=== PATIENT | female | born 1975 | race Caucasian/White ===

== ENCOUNTER 2017-12-21 21:11 | Emergency (ER) | payer OTHER ==
[~2017-12-21] VITALS: Ht 167.6 cm; Wt 93.7 kg
[2017-12-21 21:18] VITALS: TEMP 36.7; Ht 167.6 cm; Wt 93.7 kg
[2017-12-21] MEDS ORDERED: IBUPROFEN 800 MG TAB PO STA (21:47)
--- NOTE | 2017-12-21 22:11 | DIAGNOSTIC IMAGING REPORT ---
LEFT HAND 3 VIEWS HISTORY: left hand pain, crush injury COMPARISON: None. FINDINGS: Soft tissue swelling at the dorsum of the MCP joints. There appears to be a nondisplaced fracture of the distal tuft of the left fourth finger. No radiopaque foreign bodies. IMPRESSION: Nondisplaced fracture at the distal tuft of the left fourth finger. Electronically signed by: Pranav Michael M.D. 12/21/2017 10:09 PM Dictated Date/Time: 12/21/2017 10:07 PM
[2017-12-21] MEDS ORDERED: MULT-513 PO (22:26)
[2017-12-21] MEDS ORDERED: LEVOXYL PO (22:26)
--- NOTE | 2017-12-21 22:52 | EMERGENCY ROOM VISIT NOTE ---
ED Visit Note First contact with patient: 21:40 CHIEF COMPLAINT: Left hand injury HISTORY OF PRESENT ILLNESS: This 42-year-old female patient presented to the emergency department, ambulatory, approximately 1 hour after they injured the left hand when it got crushed between a metal transporter and a wall. She describes the transporter as a large rack used to hold baked goods. She states she lost control and it crushed her hand into the wall. The patient reports significant pain in the fourth digit and hands, overlying the fourth metacarpal. She states the third through fifth digits and metacarpals in the hands were slammed by the object. She does report a crush injury to the fourth distal finger a few days ago. The patient is right-handed.. The patient rates the pain as throbbing and 5/10. The patient denies any numbness or tingling. The patient does not have injuries to the wrist. The patient has not had a previous fracture to this hand. REVIEW OF SYSTEMS: A 6 system review of systems was completed with positives and pertinent negatives in the HPI. ALLERGIES: None MEDICATIONS: Levoxyl PMH: Generic levothyroxine SOCIAL HISTORY: The patient lives locally with family. She is employed at [employer], where the incident occurred. The patient denies drug, alcohol, tobacco use. PHYSICAL EXAM: Vital Signs: Reviewed Nurse's notes, vital signs stable. GENERAL : This is a 42-year-old white female, in no acute distress, but appears to be in pain, well-developed, well-nourished. MUSCULOSKELETAL: There is moderate swelling overlying the MCP joint and extending into the fourth phalange and overlying the fourth metacarpal of the left hand. No obvious deformity of the left hand except for swelling. There is tenderness over the fourth metacarpal and phalange. There is mild tenderness over the third and fifth metacarpals and phalanges. There is no thenar or hypothenar eminence atrophy. Normal thumb opposition to all fingers. [employer]ist strength 5/5. There is no laceration. Capillary refill less than 2 seconds. No tenderness of the fingers or wrist. Full range of motion of the wrist. No snuff box tenderness. Radial pulse 2+. NEURO: Alert and oriented to person, place, and time. Normal sensation to light and sharp touch. RADIOLOGY: LEFT HAND 3 VIEWS HISTORY: left hand pain, crush injury COMPARISON: None. FINDINGS: Soft tissue swelling at the dorsum of the MCP joints. There appears to be a nondisplaced fracture of the distal tuft of the left fourth finger. No radiopaque foreign bodies. IMPRESSION: Nondisplaced fracture at the distal tuft of the left fourth finger. Electronically signed by: Pranav Michael M.D. 12/21/2017 10:09 PM Dictated Date/Time: 12/21/2017 10:07 PM EMERGENCY DEPARTMENT COURSE: I examined the patient. She was given 800 mg ibuprofen. An x-ray of the left hand was reviewed by myself and radiologist and shows nondisplaced distal tuft fracture of the fourth finger. I discussed the findings with the patient at bedside. I recommended a metal splint for the finger and an Lalito wrap to help with swelling and pain in the hands. I did provide the patient with orthopedics contact information in case of worsening or not improving symptoms. All questions were answered to the patient's satisfaction. Discharge instructions reviewed. The patient was discharged home in good condition. I attest that I have personally reviewed the patient's current medication list. Patient was found to have normal blood pressure on screening and does not require follow-up. Etiologies such as soft tissue injury, fracture, dislocation, neurovascular compromise, compartment syndrome, as well as others were entertained. DIAGNOSIS: Left hand contusion, fracture of the distal tuft of the left fourth finger The chart was completed utilizing [employer] Speech voice recognition software. Grammatical errors, random word insertions, pronoun errors, and incomplete sentences are an occasional consequence of this system due to software limitations, ambient noise, and hardware issues. Any formal questions or concerns about the content, text, or information contained within the body of this dictation should be directly addressed to the provider for clarification. Current/Historical Medications Scheduled Multivitamins/Minerals (Mvi With Minerals), 1 TAB PO DAILY [Levoxyl], 62.5 MCG PO DAILY Allergies Coded Allergies: Levothyroxine (Verified Adverse Reaction, Severe, PALPATATIONS, HANDS SWEAT, FEELS FAINT, 12/21/17) Vital Signs Date Time Temp Pulse Resp B/P (MAP) Pulse Ox O2 Delivery O2 Flow Rate FiO2 12/21/17 23:04 98 18 150/78 95 12/21/17 21:18 36.7 111 18 165/84 95 Room Air Medications Administered Medications (Trade) Dose Ordered Sig/Jose A Route Start Time Stop Time Status Last Admin Dose Admin Ibuprofen (Motrin Tab) 800 mg NOW STAT PO 12/21/17 21:47 12/21/17 21:48 DC 12/21/17 22:07 800 MG Departure Information Impression Primary Impression: Closed fracture of tuft of distal phalanx of finger Additional Impression: Contusion of left hand Dispostion Home / Self-Care Condition GOOD Referrals Paola Williamson PA-C (PCP) Patient Instructions ED Contusion Hand, ED Fx Finger Closed, My [facility] Additional Instructions You were seen in the emergency department today for a left hand crush injury. As discussed, there is no obvious fracture of the hand, there was a fracture of the distal tuft of the left fourth digit. Ibuprofen(Motrin, Advil) may be used for fever or pain. Use 600mg every six hours as needed. Take with food. Avoid using more than 2400mg in a 24 hour period. Do not use 2400mg per day for more than three consecutive days without physician direction. Prolonged inappropriate use can lead to stomach upset or ulcers. (AND/OR) Acetaminophen(Tylenol) may be used for fever or pain. Use 1000mg every six hours as needed. Avoid using more than 3000mg in a 24 hour period. Ice compresses for 20 minutes at a time four times daily for 2-3 days. Rest and elevate your injury. Use the metal splint to protect the finger. Wear the Lalito wrap to provide compression and support of the contusion due to the swelling. Return to the ER immediately for any numbness, tingling, severe pain, extreme swelling in the extremity or as needed. Call [facility], [phone], if no improvement in 1 week to arrange follow up for your injury. Follow-up with your primary care physician in 2 to 3 days for a recheck of your current condition. Problem Qualifiers Additional Impression: Contusion of left hand Encounter type: initial encounter Qualified Codes: S60.222A - Contusion of left hand, initial encounter
[2017-12-21 23:04] VITALS: BP 150/78; PULSE 98; O2SAT 95
== END 2017-12-21 23:05 | disposition home or self-care (01) ==
LOC: C.EDB 21:13 → C.EDD 23:05
DX: S62.635A Displaced fracture of distal phalanx of left ring finger, initial encounter for closed fracture (principal); S60.222A Contusion of left hand, initial encounter; W23.1XXA Caught, crushed, jammed, or pinched between stationary objects, initial encounter

== ENCOUNTER 2019-03-25 07:53 | Inpatient (IN) ==
[2019-03-25] MEDS ORDERED: miSOPROStol 50 MCG TAB PO ONE (08:30)
[2019-03-25] MEDS ORDERED: LACTATED RINGER'S 1,000 ML IV PRN (08:30)
[2019-03-25 08:56] LABS: Hematocrit (blood only) 33.6 % (37-47); Mean Corpuscular Volume 84.4 fL (80-100); Mean Platelet Volume 9.4 fL (7.4-10.4); Platelet Count 236 K/uL (130-400); RDW Coefficient of Variation 13.8 % (11.5-14.5); RDW Standard Deviation 42.4 fL (36.4-46.3); Red Blood Count 3.98 M/uL (4.2-5.4); White Blood Count 10.51 K/uL (4.8-10.8)
[2019-03-25 09:00] LABS: Mean Corpuscular Hgb Conc 35.7 g/dL (32-36)
[2019-03-25 09:02] LABS: Appearance Urine Clear (Clear); Bilirubin Urine Negative (Negative); Blood Urine Negative (Negative); Color Urine Yellow; Glucose Urine UA Negative (Negative); Ketones Urine Negative (Negative); Leukocyte Esterase Urine Negative (Negative); Nitrite Urine Negative (Negative); Protein Urine Negative (Negative); Urobilinogen Urine Negative (Negative)
[2019-03-25] MEDS ORDERED: miSOPROStol 50 MCG TAB PO STA (14:24)
--- NOTE | 2019-03-25 14:24 | Labor Progress Brief Note ---
Date of Service March 25, 2019 induction for prolonged gestation Received Cytotec#1 Pt doing well FHR; CAT1 Ctx. 4-5 mins .mild VE; //-2 Plan. continue with induction Cytotec #2 ordered Pt agrees to plan Results & Data Vital Signs (Past 12 Hours) Vital Signs Temp Pulse Resp BP 03/25/19 13:06 36.7 C 85 20 132/65 03/25/19 11:21 36.9 C 86 16 126/72 03/25/19 08:06 36.8 C 18 03/25/19 08:04 114 H 136/90
[2019-03-25] MEDS ORDERED: OXYTOCIN 30 UNITS/500 ML BAG IV PRN (21:26)
--- NOTE | 2019-03-25 21:26 | Labor Progress Brief Note ---
Date of Service March 25, 2019 Pt doing well Induction for prolonged gestation Received 2 doses of Cytotec FHR; CAT1 Ctx 2-5mins VE; 3/50/-2- Unchanged Plan Start Pitocin augmentation Pt agrees to plan Results & Data Vital Signs (Past 12 Hours) Vital Signs Temp Pulse Resp BP 03/25/19 19:07 36.6 C 18 03/25/19 19:06 86 140/88 03/25/19 14:57 36.7 C 16 03/25/19 14:42 85 134/82 03/25/19 13:06 36.7 C 85 20 132/65 03/25/19 11:21 36.9 C 86 16 126/72
[2019-03-25] MEDS ORDERED: BUTORPHANOL TARTRATE 2 MG/ML VIAL IV PRN (23:27)
--- NOTE | 2019-03-25 23:30 | Labor Progress Brief Note ---
Date of Service March 25, 2019 Pt doing well FHR- Poor tracing quality scalp placed VE; 4/90/-2; clear fluid Ctx 2-3mins Pit ; 2Mu Results & Data Vital Signs (Past 12 Hours) Vital Signs Temp Pulse Resp BP 03/25/19 22:14 36.8 C 03/25/19 22:13 93 H 146/76 H 03/25/19 19:07 36.6 C 03/25/19 19:06 86 140/88 03/25/19 14:57 36.7 C 16 03/25/19 14:42 85 134/82 03/25/19 13:06 36.7 C 85 20 132/65
[2019-03-25] MEDS ORDERED: BUTORPHANOL TARTRATE 2 MG/ML VIAL ONE (23:32)
[2019-03-26] MEDS ORDERED: ePHEDrine sulfate 50 MG/ML AMP ONE (00:47)
[2019-03-26] MEDS ORDERED: BUPIVACAINE 0.25% 30 ML VIAL ONE (00:47)
[2019-03-26] MEDS ORDERED: fentaNYL 2MCG/ML ROPIV 1.25MG/ML 100 ML BAG EPI ONE (00:48)
[2019-03-26] MEDS ORDERED: fentaNYL citrate 100 MCG/2 ML VIAL ONE (00:48)
[2019-03-26] MEDS ORDERED: NALBUPHINE HCL INJ 10 MG/ML AMP IV PRN (00:55)
[2019-03-26] MEDS ORDERED: ONDANSETRON INJ 2 MG/ML 2 ML VIAL IV PRN (00:55)
[2019-03-26] MEDS ORDERED: ePHEDrine sulfate 50 MG/ML AMP IV PRN (00:55)
[2019-03-26] MEDS ORDERED: DiphenhydrAMINE HCL 50 MG/ML VIAL IV PRN (00:55)
[2019-03-26] MEDS ORDERED: fentaNYL 2MCG/ML ROPIV 1.25MG/ML 100 ML BAG EPI PRN (00:55)
[2019-03-26] MEDS ORDERED: NALOXONE HCL 0.4 MG/1 ML VIAL/CARP IV PRN (00:55)
[2019-03-26] MEDS ORDERED: NALOXONE HCL 1 MG in SODIUM CHLORIDE 0.9% 1000ML 1,000 ML IV PRN (00:55)
--- NOTE | 2019-03-26 00:55 | Anesthesiology Consultation ---
Date of Service March 26, 2019 Assessment & Plan (1) Encounter for pre-operative examination: Chart Review Chart Review: Acceptable Risk for Labor Epidural Consults Requested none ASA ASA2 Proposed Anesthesia Anesthesia Type: Labor Epidural Risk / Benefits Reviewed With: PT / POA / Parent / Guardian, Accepts Plan and Informed Consent Obtained History Height/Weight Height: 5 ft 6 in Weight: 101.605 kg Allergies Allergy/AdvReac Type Severity Reaction Status Date / Time levothyroxine AdvReac Severe PALPATATIONS, Verified 03/25/19 08:29 HANDS SWEAT, FEELS FAINT Medications Home Medications Medication Instructions Recorded Confirmed Last Taken Levoxyl 88 mcg PO DAILY 03/25/19 03/25/19 03/25/19 06:00 PNV cmb#95-ferrous fumarate-FA 1 tab PO DAILY 03/25/19 03/25/19 03/25/19 06:00 [] Active Medications Generic Name Dose Route Start Last Admin Trade Name Freq PRN Reason Stop Dose Admin Lactated Ringer's 1,000 mls @ 125 mls/hr 03/25/19 08:30 03/25/19 22:00 Lr IV 03/27/19 08:29 125 mls/hr .Q8H PRN Administration L&D Protocol Protocol Oxytocin 30 units in 500 mls @ 2 mls/hr 03/25/19 21:26 03/26/19 00:28 Pitocin IV 03/27/19 21:25 0.36 units/hr .Q24H PRN 6 mls/hr Labor Induction/Augmentation Titration Protocol 0.12 UNITS/HR Past Medical History Medical History Asthma childhood Breast lesion bx wnl Depression as a teenager; no meds current Hypothyroidism only able to take Levoxyl only Mitral valve prolapse takes no meds hemorrhage with first delivery Exercise / Class Metabolic Activity II 4-5 Yardwork/Stairs/Walk up hill Past Surgical History Surgical History H/O dilation of urethra at age 13 Past Anesthesia History No Hx of Anesthesia Complications and No Family Hx of Anesthesia Complications History of PONV No Hx of PONV and No Hx of Motion Sickness Social History Smoking Status: Never smoker Hx Alcohol Use: No Hx Substance Use: No substance use type: does not use Physical Exam Vital Signs Last Vital Signs Temp 98.2 F 03/25/19 23:24 Pulse 89 03/26/19 00:49 Resp 18 03/25/19 23:24 BP 122/58 L 03/26/19 00:03 Pulse Ox 99 03/26/19 00:49 ENMT Mouth: no dentition abnormality Thyromental Distance: > or= 3.5 Finger Breadths Mallampati Class: II Neck normal visual inspection Respiratory normal respiratory effort Auscultation: lungs clear to auscultation bilaterally Cardiovascular Rate/Rhythm: regular rate and regular rhythm Testing Laboratory Results 03/25/19 08:44 Urine Color Yellow 03/25/19 08:19 Urine Appearance Clear (Clear) 03/25/19 08:19 Urine pH 7.0 (4.5-7.5) 03/25/19 08:19 Ur Specific [place] 1.010 (1.000-1.030) 03/25/19 08:19 Urine Protein Negative (Negative) 03/25/19 08:19 Urine Glucose (UA) Negative (Negative) 03/25/19 08:19 Urine Ketones Negative (Negative) 03/25/19 08:19 Urine Nitrite Negative (Negative) 03/25/19 08:19 Ur Leukocyte Esterase Negative (Negative) 03/25/19 08:19
[2019-03-26] MEDS: OXYTOCIN 30 UNITS/500 ML BAG IV PRN ×2 (02:51→03:27)
[2019-03-26] MEDS ORDERED: HYDROCORTISONE ACETATE 25 MG SUPP PR PRN (03:18)
[2019-03-26] MEDS ORDERED: miSOPROStol 200 MCG TAB PR ONE (03:18)
[2019-03-26] MEDS ORDERED: ACETAMINOPHEN 325 MG TAB PO PRN (03:18)
[2019-03-26] MEDS ORDERED: SUPERCREAM 0.870% 15 GM JAR EXT PRN (03:18)
[2019-03-26] MEDS ORDERED: OXYTOCIN 30 UNITS/500 ML BAG IV PRN (03:18)
[2019-03-26] MEDS ORDERED: DIPHTHERIA/TETANUS/PERTUSSIS 0.5 ML SYR/VIAL IM ONE (03:18)
[2019-03-26] MEDS ORDERED: BISACODYL 10 MG SUPP PR PRN (03:18)
[2019-03-26] MEDS ORDERED: BENZOCAINE 20% AER SPR 82.5 GM CAN EXT PRN (03:18)
--- NOTE | 2019-03-26 03:43 | History and Physical Report ---
DATE OF ADMISSION: 03/25/2019 HISTORY OF PRESENT ILLNESS: The patient is a 44-year-old G4, P2, due date 03/24/2019 making her 40 weeks and 1 day, who presented to labor and delivery for labor induction for prolonged gestation. On arrival, the patient had no shortness of breath, no chills, no fever. heart rate was category 1. COURSE: Has been unremarkable except for advanced maternal age. The patient had and testing including NIPT which showed low risk. PAST MEDICAL HISTORY: 1. History of hypothyroidism. 2. Obesity. PAST SURGICAL HISTORY: The patient has had urethral dilation, dental surgeries and breast biopsies. FAMILY HISTORY: Noncontributory. SOCIAL HISTORY: The patient denies tobacco, drug or alcohol use. OB AND PIEROGI MAKER HISTORY: The patient has had 2 spontaneous vaginal deliveries, one in 2003 when she delivered an 8 pound 9 ounce baby, the second one in 2010 when she delivered an 8 pound 6 ounce baby as well. PHYSICAL EXAMINATION: GENERAL: Well-developed, well-nourished white female in no acute distress. HEART: S1, S2, regular rhythm and rate. LUNGS: Clear to auscultation bilaterally. ABDOMEN: Gravid. Bedside ultrasound shows cephalic presentation. PELVIC: On admission is 2 cm, 50% effaced, and -2. EXTREMITIES: No cyanosis, clubbing or edema. ASSESSMENT AND PLAN: A 44-year-old G4, P2 at 40 weeks and 1 day, induction for prolonged gestation. Plan is to admit the patient and anticipate vaginal delivery.
--- NOTE | 2019-03-26 03:48 | Delivery Summary ---
DATE OF OPERATION: 03/25/2019 DELIVERY SUMMARY: The patient delivered a live infant male in left occiput anterior presentation. There was no nuchal cord. Vacuum was used x2 for delivery because of maternal exhaustion and heart rate which was in the 70-80s. Cord was clamped and cut. Cord blood was obtained. Cord gas was obtained as well. Placenta was spontaneously delivered. Placenta is sent to pathology for pathological analysis. Inspection of the perineum showed a second-degree midline episiotomy, which was performed prior to vacuum placement. The rest of the perineum was unremarkable. The weight is pending. Apgars 8 and 9. Rectal exam post repair showed good sphincter tone. There are no sutures palpated in the rectum. ESTIMATED BLOOD LOSS: 600 mL. and mother are doing well in recovery. I attest to the content of the Intraoperative Record and any orders documented therein. Any exceptions are noted below. MTDD
[2019-03-26 04:06] LABS: Base Excess Cord Arterial Bld -7.4 mEq/L (-9-1.8); Base Excess Cord Venous Blood -7.2 mEq/L (-7.7-1.9); CO2 Cord Arterial Blood 54 mmHg (39.1-73.5); Cord Venous Blood HCO3 20 mmol/L (18.4-26.8); Cord Venous Blood PCO2 44 mmHg (30.4-57.2); Cord Venous Blood PO2 35 mmHg (14.1-43.3); Cord Venous Blood pH 7.27 (7.20-7.44); HCO3 Cord Arterial Blood 21 mmol/L (19.7-28.5); Oxygen Sat Cord Arterial Blood < 60.0 % (<60); PO2 Cord Arterial Blood 25.1 % (4.1-31.7); pH Cord Arterial Blood 7.21 (7.1-7.38)
[2019-03-26] MEDS: IBUPROFEN 600 MG TAB PO PRN ×2 (05:16→12:45)
--- NOTE | 2019-03-26 09:31 | Anesthesia Procedure Note ---
Date of Service March 26, 2019 Anesthesia Post Epidural Note Vital Signs Vital Signs: Temp Pulse Resp BP Pulse Ox 36.6 C 83 18 124/64 100 03/26/19 08:20 03/26/19 08:20 03/26/19 08:20 03/26/19 08:20 03/26/19 02:49 Pain Intensity Abdomen: Pain Intensity: 2 Notes Mental Status: alert / awake / arousable Nausea / Vomiting: adequately controlled Pain: adequately controlled Airway Patency, RR, SpO2: stable & adequate BP & HR: stable & adequate Hydration State: stable & adequate Neuraxial Anesthesia: was administered and sensory block is resolving Anesthetic Complications: no major complications apparent and Pt Satisfied with anesthetic care Epidural: Removed without complications and With tip intact
[2019-03-26] MEDS ORDERED: CALCIUM CARBONATE 500 MG CHEWABLE TAB PO PRN (10:05)
[2019-03-26] MEDS: LEVOTHYROXINE SODIUM 88 MCG TABLET PO SCH (10:19)
[2019-03-26] MEDS: FERROUS SULFATE 325 MG TAB PO SCH (10:26)
[2019-03-26] MEDS: DOCUSATE SODIUM 100 MG CAP PO SCH ×2 (10:26→20:46)
[2019-03-26] MEDS: PRENATAL VITAMIN 1 TAB PO SCH (10:26)
[2019-03-27 07:04] LABS: Hematocrit (blood only) 33.6 % (37-47); Hemoglobin 11.5 g/dL (12.0-16.0); Mean Corpuscular Hgb Conc 34.2 g/dL (32-36); Mean Corpuscular Volume 86.4 fL (80-100); Mean Platelet Volume 9.8 fL (7.4-10.4); Platelet Count 236 K/uL (130-400); RDW Coefficient of Variation 14.1 % (11.5-14.5); Red Blood Count 3.89 M/uL (4.2-5.4); White Blood Count 11.47 K/uL (4.8-10.8)
[2019-03-27] MEDS: LEVOTHYROXINE SODIUM 88 MCG TABLET PO SCH (07:09)
[2019-03-27] MEDS: PRENATAL VITAMIN 1 TAB PO SCH (09:04)
[2019-03-27] MEDS: DOCUSATE SODIUM 100 MG CAP PO SCH (09:04)
[2019-03-27] MEDS: FERROUS SULFATE 325 MG TAB PO SCH (09:04)
--- NOTE | 2019-03-27 09:15 | Obstetrical Progress Note ---
Date of Service March 27, 2019 Subjective doing well +bm no significant pain or bleeding no edema fundus firm for discharge today Physical Exam Constitutional: WD/WN, vitals as above comfortable Results & Data Vital Signs (Past 12 Hours) Vital Signs Temp Pulse Resp BP Pulse Ox 03/27/19 04:15 36.9 C 78 18 119/76 98 03/26/19 23:17 36.7 C 79 18 116/76 99 Laboratory Results Laboratory Results - last 48 hr 03/26/19 03/26/19 03/27/19 02:46 02:46 06:48 WBC 11.47 H RBC 3.89 L Hgb 11.5 L Hct 33.6 L MCV 86.4 MCH 29.6 MCHC 34.2 RDW Std Deviation 44.0 RDW Coeff of Blas 14.1 Plt Count 236 MPV 9.8 Cord ABG pH 7.21 Cord ABG pCO2 54 Cord ABG pO2 25.1 Cord ABG HCO3 21 Cord ABG Base Excess -7.4 Cord ABG O2 Sat < 60.0 Cord VBG pH 7.27 Cord VBG pCO2 44 Cord VBG pO2 35 Cord VBG HCO3 20 Cord VBG Base Excess -7.2 Cord VBG O2 Sat 71.0 H Barometric Pressure 732.2 731.8 Blood Gas Comments BROUSSARD BROUSSARD
[2019-03-27] MEDS ORDERED: BISACODYL 5 MG TABEC PO SCH (20:00)
--- NOTE | 2019-03-29 23:31 | Discharge Summary ---
HISTORY OF PRESENT ILLNESS: This is a 44-year-old G4, P2, due date 03/24/2019 making her 40 weeks and 1 day on 03/25/2019 when she presented to labor and delivery for induction of labor for prolonged gestation. The patient's has been complicated by obesity and advanced maternal age. On arrival to labor and delivery, she had no shortness of breath, no chills, no fever and no rupture of membranes. Bedside ultrasound shows cephalic presentation. Induction was discussed with the patient. We discussed risks and benefits including but not limited to and associated morbidities. Induction included Cytotec and Pitocin. The patient went on to deliver a live . Details of delivery is in the pediatric delivery note. Mother and baby did well and discharged home on 03/27/2019. PAST MEDICAL HISTORY: History of hypothyroidism and obesity. PAST SURGICAL HISTORY: The patient has had urethral dilation as well as dental surgeries and breast biopsies. SOCIAL HISTORY: The patient denies tobacco, drug or alcohol use. FAMILY HISTORY: Noncontributory. ALLERGIES: THE PATIENT IS ALLERGIC TO LEVOTHYROXINE. REVIEW OF SYSTEMS: Negative except as dictated in HPI. LABORATORY DATA: On 03/27/2019 showed hemoglobin of 11.5 and hematocrit of 33.6. PHYSICAL EXAMINATION: VITAL SIGNS: on 03/27/2019 was 128/80, temperature of 37.1, pulse of 82 and respirations of 16. HEART: S1, S2. Regular rhythm and rate. LUNGS: Clear to auscultation bilaterally. ABDOMEN: Nontender and nondistended. Positive bowel sounds. EXTREMITIES: No cyanosis, clubbing or edema. CONDITION ON DISCHARGE: Stable. OPERATION: Induction of labor, vacuum assisted vaginal delivery. DISCHARGE DIAGNOSIS: . PLAN ON DISCHARGE: The patient is discharged home with instructions regarding activity, diet, followup appointment and medication.
== END 2019-03-27 11:05 | disposition home or self-care (01) | DRG 807 ==
LOC: 4S1 07:53 → 4S2 03-26 09:36